=== PATIENT | female | born 1995 | race Hispanic/Latino ===

== ENCOUNTER 2023-04-11 10:35 | Emergency (ER) | payer BC, SELFPAY ==
[~2023-04-11] VITALS: Ht 157.5 cm; Wt 72.6 kg
[2023-04-11 11:23] LABS: BASOPHILS # (AUTO) 0.03 K/uL (0.00-0.20); BASOPHILS % (AUTO) 0.3 % (0.0-5.0); EOSINOPHILS # (AUTO) 0.04 K/uL (0.00-0.70); EOSINOPHILS % (AUTO) 0.3 % (0.0-8.0); HEMATOCRIT 37.8 % (36-48); IMMATURE GRANULOCYTE ABSOLUTE 0.04 K/uL (0-1); LYMPHOCYTES # (AUTO) 2.1 K/uL (1.0-4.8); LYMPHOCYTES % (AUTO) 18.6 % (21.0-51.0); MEAN CORPUSCULAR HEMOGLOBIN 24.8 pg (27.0-33.0); MEAN CORPUSCULAR HGB CONC 32.3 g/dL (32.0-36.0); MEAN CORPUSCULAR VOLUME 76.8 fL (79-99); MONOCYTES # (AUTO) 0.6 K/uL (0.1-1.0); MONOCYTES % (AUTO) 4.8 % (3.0-13.0); NEUTROPHILS # (AUTO) 8.7 K/uL (1.8-7.7); NEUTROPHILS % (AUTO) 75.7 % (40.0-77.0); PLATELET COUNT (AUTO) 337 K/uL (130-400); RED BLOOD CELL COUNT(AUTO) 4.92 MIL/uL (4.00-5.50); RED CELL DISTRIBUTION WIDTH 13.8 % (11.0-15.5); WHITE BLOOD COUNT (AUTO) 11.5 K/uL (4.8-10.8)
[2023-04-11 11:33] LABS: APPEARANCE,URINE CLEAR (CLEAR); BILIRUBIN,URINE NEGATIVE (NEGATIVE); COLOR,URINE YELLOW (YELLOW); GLUCOSE, URINE (UA) NEGATIVE (NEGATIVE); KETONES,URINE NEGATIVE (NEGATIVE); LEUKOCYTE ESTERASE ,URINE 75 Leu/uL (NEGATIVE); NITRATE,URINE NEGATIVE (NEGATIVE); OCCULT BLOOD,URINE NEGATIVE (NEGATIVE); PROTEIN,URINE 20 mg/dL (NEGATIVE); UROBILINOGEN,URINE 0.2 mg/dL (0.2-1.0)
[2023-04-11 11:35] LABS: CREATININE 0.9 mg/dL (0.5-1.5)
[2023-04-11 11:39] LABS: ALBUMIN 3.8 g/dL (3.5-5.0); BILIRUBIN,TOTAL 0.4 mg/dL (0.2-1.0); TOTAL PROTEIN, SERUM 8.1 g/dL (6.0-8.3)
[2023-04-11 11:42] LABS: POTASSIUM 3.8 mmol/L (3.5-5.1)
[2023-04-11 11:45] LABS: ADD UA MICROSCOPIC YES
[2023-04-11 11:50] LABS: HCG,QUALITATIVE URINE NEGATIVE (NEGATIVE)
[2023-04-11 11:57] LABS: MUCUS,URINE RARE LPF (None Seen); OTHER CASTS, URINE 1 /LPF (None Seen); SQUAMOUS EPITHELIAL CELL,UR FEW /HPF (0-2)
[2023-04-11] MEDS: ONDANSETRON 4MG INJ IVP ONE (12:16)
[2023-04-11] MEDS: KETOROLAC 30MG VIAL (30MG/ML) IVP ONE (12:16)
[2023-04-11] MEDS: ONDANSETRON 4MG INJ ONE (12:17)
[2023-04-11] MEDS: 0.9%NACL 1000ML 1,000 ML IV ONE (12:17)
[2023-04-11] MEDS: KETOROLAC 30MG VIAL (30MG/ML) ONE (12:17)
[2023-04-11 13:59] VITALS: BP 147/85; PULSE 64; RESP 16; O2SAT 98
[2023-04-11] MEDS ORDERED: IBUP-2077 PO (14:04)
[2023-04-11] MEDS ORDERED: NITR100C PO (14:04)
[2023-04-11] MEDS ORDERED: ONDA4TAB10 PO (14:04)
[2023-04-11] MEDS: MORPHINE 2 MG SYG ONE (14:13)
[2023-04-11] MEDS: MORPHINE 2 MG SYG IM ONE (14:13)
== END 2023-04-11 14:44 | disposition home or self-care (01) ==
LOC: EDH 10:35
DX: K80.50 Calculus of bile duct without cholangitis or cholecystitis without obstruction (principal); N30.00 Acute cystitis without hematuria
CPT/HCPCS: 99284; 96374; 76705; 96375; 80053; 83690; 85025; 87088; 81001; 81025; 36415; 96372; J2270; J2405; J1885